=== PATIENT | male | born 1975 | race Hispanic/Latino ===

== ENCOUNTER 2016-10-02 18:11 | Emergency (ER) | payer SELFPAY ==
[2016-10-02] MEDS ORDERED: NACL 0.9% 1000 ML 1,000 ML IV ONE ×2 (20:28→23:14)
[2016-10-02] MEDS ORDERED: ZOFRAN IV ONE (20:29)
--- NOTE | 2016-10-02 20:50 | Emergency Department Report ---
HPI - General Chief Complaint: Abdominal Pain Time Seen by Provider: 10/02/16 20:09 - HPI HPI: This is a 41-year-old male who presents to the emergency department from home with complaint of a one-day history of nausea, vomiting, diarrhea and some abdominal cramping. The patient says he has had about 10 episodes of vomiting and diarrhea each. He has not checked his temperature for any fever but has been feeling chills. He says that his kids recently had a "stomach bug " and says that he probably caught it from them but his appears worse than theirs. He has a history of diverticulitis and diverticulosis. He does not have a primary care doctor. He has not taken anything for symptoms prior to presentation. No recent travel. ED Past Medical Hx - Past Medical History Previous Medical History?: Yes Hx CVA: No Hx Congestive Heart Failure: No Hx Diabetes: No Hx Asthma: No Hx COPD: No Hx HIV: No Additional medical history: diverticulitis - Surgical History Past Surgical History?: Yes Additional Surgical History: Back surgery and left hand surgery - Social History Smoking Status: Never Smoker Substance Use Type: None - Medications Home Medications: Home Medications Medication Instructions Recorded Confirmed Last Taken Type Ondansetron [Zofran Odt] 4 mg PO Q8H PRN #10 tab.rapdis 10/03/16 Unknown Rx ED Review of Systems ROS: Stated complaint: ABD PAIN Other details as noted in HPI Comment: All other systems reviewed and negative Constitutional: chills. denies: weakness Eyes: denies: eye pain, eye discharge, vision change ENT: denies: ear pain, throat pain Respiratory: denies: cough, shortness of breath, wheezing Cardiovascular: denies: chest pain, palpitations Gastrointestinal: abdominal pain, nausea, vomiting, diarrhea Genitourinary: denies: urgency, dysuria Musculoskeletal: denies: back pain, joint swelling, arthralgia Skin: denies: rash, lesions Neurological: denies: headache, weakness, paresthesias Physical Exam - Physical Exam Vital Signs: Vital Signs 10/02/16 10/02/16 10/02/16 18:18 18:36 18:56 Temperature 97.7 F Pulse Rate 100 H 94 H Respiratory 16 15 15 Rate Blood Pressure 135/80 Blood Pressure 107/66 [Left] O2 Sat by Pulse 99 100 100 Oximetry Physical Exam: GENERAL: The patient is well-developed well-nourished. HEENT: Normocephalic. Atraumatic. Extraocular motions are intact. Patient has moist mucous membranes. Pupils equal reactive to light bilaterally. NECK: Supple. Trachea is midline. CHEST/LUNGS: Clear to auscultation. There is no respiratory distress noted. HEART/CARDIOVASCULAR: Regular. There is no tachycardia. There is no gallop rub or murmur. ABDOMEN: Abdomen is soft, nontender. Patient has hyperactive bowel sounds. There is no abdominal distention. SKIN: Skin is warm and dry. NEURO: The patient is awake, alert, and oriented. The patient is cooperative. The patient has no focal neurologic deficits. The patient has normal speech. MUSCULOSKELETAL: There is no tenderness or deformity. There is no limitation range of motion. There is no evidence of acute injury. ED Course Vital Signs 10/02/16 10/02/16 10/02/16 18:18 18:36 18:56 Temperature 97.7 F Pulse Rate 100 H 94 H Respiratory 16 15 15 Rate Blood Pressure 135/80 Blood Pressure 107/66 [Left] O2 Sat by Pulse 99 100 100 Oximetry ED Medical Decision Making - Lab Data Result diagrams: 10/02/16 20:37 10/02/16 20:37 - EKG Data -: EKG Interpreted by Me EKG shows normal: sinus rhythm, axis, intervals, QRS complexes (incomplete RBBB) , ST-T waves Rate: normal - EKG Data When compared to previous EKG there are: previous EKG unavailable Interpretation: other (incomplete RBBB) - Radiology Data Radiology results: image reviewed interpreted by me: X-ray of the abdomen does not show any acute process. Nonobstructive nonspecific bowel gas. - Medical Decision Making 41-year-old male presents with a two-day history of nausea, vomiting, diarrhea and some abdominal cramping. Patient's vital signs are stable throughout his ED course including being afebrile. Patient does not have any significant abdominal discomfort palpation and does not have a rigid or toxic abdomen. Patient's labs do show a leukocytosis of 16,000 but otherwise there are no electrolyte abdomen allergies, renal insufficiency, glucose abnormalities and the patient has normal belly labs including bilirubin, lipase and LFT. Urinalysis does not show any significant dehydration or any infection. Patient was given 2 L of IV fluid resuscitation and a dose of Zofran. Abdominal x-ray shows some nonspecific nonobstructive bowel gas. Patient was reevaluated multiple times over multiple hours and says he is feeling much better. He was able to keep down some water to show the ability for oral rehydration. He'll be discharged home with some Zofran ODT and encouraged to follow-up with his primary care doctor. He will return to the ER with any worsening of symptoms or any acute distress. - Differential Diagnosis gastroenteritis, colitis, food poisoning, gastritis Critical Care Time: No Critical care attestation.: If time is entered above; I have spent that time in minutes in the direct care of this critically ill patient, excluding procedure time. ED Disposition Clinical Impression: Dehydration Nausea and vomiting Qualifiers: Vomiting type: unspecified Vomiting Intractability: non-intractable Qualified Code(s): R11.2 - Nausea with vomiting, unspecified Diarrhea Qualifiers: Diarrhea type: unspecified type Qualified Code(s): R19.7 - Diarrhea, unspecified Disposition: DISCHARGED TO HOME OR SELFCARE Is pt being admited?: No Condition: Stable Instructions: Acute Nausea and Vomiting (ED), Acute Diarrhea (ED), Dehydration (ED) Additional Instructions: Please follow-up with a primary care doctor in the next few days. Increase your oral rehydration. Return to the emergency department with any intractable vomiting, intractable fever, worsening of symptoms or any acute distress. Prescriptions: Ondansetron [Zofran Odt] 4 mg PO Q8H PRN #10 tab.rapdis PRN Reason: Nausea Referrals: PRIMARY MD ZAC [Primary Care Provider] - 3-5 Days MAGDA SOLIS MD [Staff Physician] - 3-5 Days [facility] [Outside] - 3-5 Days Time of Disposition: 02:02
[2016-10-02 20:52] LABS: Hematocrit 46.2 % (35.5-45.6); Hemoglobin 15.4 gm/dl (11.8-15.2); Mean Corpuscular HGB Conc 33 % (32-34); Mean Corpuscular Hemoglobin 28 pg (28-32); Mean Corpuscular Volume 84 fl (84-94); Platelet Count 310 K/mm3 (140-440); Red Blood Count 5.52 M/mm3 (3.65-5.03); White Blood Count 16.9 K/mm3 (4.5-11.0)
[2016-10-02 21:11] LABS: Alanine Aminotransferase 23 units/L (7-56); Albumin 4.7 g/dL (3.9-5); Albumin/Globulin Ratio 1.6 %; Alkaline Phosphatase 60 units/L (35-129); Anion Gap 19 mmol/L; Bilirubin,Total 0.9 mg/dL (0.1-1.2); Blood Urea Nitrogen 14 mg/dL (9-20); Calcium 9.6 mg/dL (8.4-10.2); Carbon Dioxide 19 mmol/L (22-30); Chloride 103.4 mmol/L (98-107); Glucose 111 mg/dL (75-100); Lipase 12 units/L (13-60); Potassium 3.7 mmol/L (3.6-5.0); Sodium 138 mmol/L (137-145); Total Protein 7.6 g/dL (6.3-8.2)
[2016-10-02 21:16] LABS: Bilirubin,Direct < 0.2 mg/dL (0-0.2); Bilirubin,Indirect 0.7 mg/dL
[2016-10-02 22:19] LABS: Basophils % (Manual) 0 % (0.0-1.8); Blastocytes % (Manual) 0 %; Eosinophils % (Manual) 0 % (0.0-4.3)
[2016-10-02 22:20] LABS: Diff Status Complete; Ovalocytes Few; Platelet Estimate Consistent w Auto
[2016-10-03 02:19] VITALS: BP 111/62
--- NOTE | 2016-10-03 07:40 | XRay Report ---
ABDOMEN RADIOGRAPHS INDICATION: Abdominal pain. COMPARISON: None similar. FINDINGS: Frontal abdominal radiographs demonstrate nonobstructive bowel gas pattern without focal suspicious calcifications, pneumatosis or pneumoperitoneum. Right hemidiaphragm minimally elevated. Lower thoracic-upper lumbar fusion hardware noted. CONCLUSION: No acute abdominal radiographic abnormality, as described. Thank you for the opportunity to participate in this patient's care.
== END 2016-10-03 02:19 | disposition home or self-care (01) ==
LOC: ED 18:11
DX: E86.0 Dehydration (principal); R11.2 Nausea with vomiting, unspecified; R19.7 Diarrhea, unspecified
CPT/HCPCS: 36415; 74020; 80048; 80074; 83690; 85007; 85025; 93005; 93010; 96361; 96374; 99285; J2405; J7030

== ENCOUNTER 2017-10-31 00:35 | Emergency (ER) | payer OTHER ==
[2017-10-31 01:18] VITALS: BP 126/93
[2017-10-31 02:58] LABS: Basophils # (Auto) 0.1 K/mm3 (0.0-0.1); Basophils % (Auto) 0.9 % (0.0-1.8); Eosinophils # (Auto) 0.1 K/mm3 (0.0-0.4); Hematocrit 40.6 % (35.5-45.6); Hemoglobin 14.1 gm/dl (11.8-15.2); Lymphocytes # (Auto) 1.3 K/mm3 (1.2-5.4); Lymphocytes % (Auto) 13.7 % (13.4-35.0); Mean Corpuscular HGB Conc 35 % (32-34); Mean Corpuscular Hemoglobin 29 pg (28-32); Mean Corpuscular Volume 82 fl (84-94); Monocytes # (Auto) 1.2 K/mm3 (0.0-0.8); Monocytes % (Auto) 13.2 % (0.0-7.3); Platelet Count 289 K/mm3 (140-440); Red Blood Count 4.93 M/mm3 (3.65-5.03); Red Cell Distribution Width 13.1 % (13.2-15.2)
[2017-10-31 03:11] LABS: Alanine Aminotransferase 17 units/L (7-56); Albumin 4.3 g/dL (3.9-5); BUN/Creatinine Ratio 17; Blood Urea Nitrogen 12 mg/dL (9-20); Calcium 9.3 mg/dL (8.4-10.2); Hemolysis Index 15
--- NOTE | 2017-11-01 14:55 | ED Elopement Review ---
ED Pt Elopement review - Results review Lab results: Laboratory Tests 10/31/17 10/31/17 02:25 02:25 WBC 9.4 RBC 4.93 Hgb 14.1 Hct 40.6 MCV 82 L MCH 29 MCHC 35 H RDW 13.1 L Plt Count 289 Lymph % (Auto) 13.7 [place] % (Auto) 13.2 H Eos % (Auto) 1.0 Baso % (Auto) 0.9 Lymph # 1.3 [place] # 1.2 H Eos # 0.1 Baso # 0.1 Seg Neutrophils % 71.2 H Seg Neutrophils # 6.7 Sodium 135 L Potassium 3.1 L Chloride 93.9 L Carbon Dioxide 26 Anion Gap 18 BUN 12 Creatinine 0.7 L Estimated GFR > 60 BUN/Creatinine Ratio 17 Glucose 142 H Calcium 9.3 Total Bilirubin 0.80 AST 18 ALT 17 Alkaline Phosphatase 56 Total Protein 7.3 Albumin 4.3 Albumin/Globulin Ratio 1.4 - Call Back decision Pt Call Back Decision: Pt to F/U with PMD (to follow-up for abdominal pain, and hypokalemia.)
== END 2017-10-31 10:30 | disposition left against medical advice (07) ==
LOC: ED 00:35
DX: K57.92 Diverticulitis of intestine, part unspecified, without perforation or abscess without bleeding (principal); Z53.21 Procedure and treatment not carried out due to patient leaving prior to being seen by health care provider
CPT/HCPCS: 36415; 80053; 85025